=== PATIENT | male | born 1985 | race Caucasian/White ===

== ENCOUNTER 2018-02-09 12:50 | Emergency (ER) | payer SELFPAY ==
[~2018-02-09] VITALS: Ht 175.3 cm; Wt 69.4 kg
[2018-02-09 13:07] VITALS: Ht 175.3 cm; Wt 69.4 kg
[2018-02-09 16:04] VITALS: BP 122/70
== END 2018-02-09 16:04 | disposition home or self-care (01) ==
LOC: ED 12:50
DX: S91.312A Laceration without foreign body, left foot, initial encounter (principal); W27.8XXA Contact with other nonpowered hand tool, initial encounter; Y93.89 Activity, other specified; Y92.89 Other specified places as the place of occurrence of the external cause; Y99.8 Other external cause status
CPT/HCPCS: J2001; Q0092

== ENCOUNTER 2018-02-11 15:27 | Emergency (ER) | payer SELFPAY ==
[~2018-02-11] VITALS: Ht 175.3 cm; Wt 66.7 kg
[2018-02-11 15:36] VITALS: BP 123/66; Ht 175.3 cm; Wt 66.7 kg
== END 2018-02-11 17:46 | disposition home or self-care (01) ==
LOC: ED 15:27
DX: S91.312D Laceration without foreign body, left foot, subsequent encounter (principal); W45.8XXD Other foreign body or object entering through skin, subsequent encounter